=== PATIENT | male | born 1960 | race Hispanic/Latino ===

== ENCOUNTER → 2020-08-20 | Outpatient (CLI) | payer MEDICAID ==
[~2020-08-20] MED LIST: APIX5TAB PO; ASPI-556 PO; CARV25TA PO; CLOP75TA14 PO; EZET10TA48 PO; FURO40TA5 PO; PANT40TA55 PO; POTA-79 PO; SACU1TAB PO; SPIR25TA6 PO; TAMS-1 PO
--- NOTE | 2020-08-20 10:45 | NUR ---
MBSS COMPLETED. SHALLOW PENETRATION WITH THIN LIQUIDS VIA NEUTRAL HEAD POSITION. RECOMMEND MECHANICAL SOFT/CHOPPED, THIN LIQUIDS (CHIN TUCK); PILLS WHOLE WITH LIQUIDS. RECOMMENDATIONS: 1. SKILLED SPEECH THERAPY 2XWEEK FR 4 WEEKS BRAND MANAGER PROVIDED RESULTS AND RECOMMENDATIONS VIA VERBAL AND WRITTEN MODALITY ALL QUESTIONS ANSWERED AT THIS TIME. VERBALIZED UNDERSTANDING ON CHIN TUCK INSTRUCTIONS. BRAND MANAGER PROVIDED HOSPITAL EXTENSION IN CARE ANY QUESTIONS ARISE IN THE HOME SETTING. Addendum: 08/20/20 at 1544 by GABRIEL FERRER, [facility] Amended: Links added.
== END | disposition home or self-care (01) ==
LOC: RAH 09:42
PROVIDERS: ATTEND Internal Medicine Gastroenterology
DX: R13.10 Dysphagia, unspecified (principal); R13.12 Dysphagia, oropharyngeal phase
CPT/HCPCS: 74230; 92611